=== PATIENT | female | born 2000 | race African-American/Black ===

== ENCOUNTER 2019-08-26 19:10 | Emergency (ER) | payer BC ==
[~2019-08-26] VITALS: Ht 165.1 cm; Wt 56.7 kg
[2019-08-26 21:10] VITALS: BP 115/70
== END 2019-08-26 21:10 | disposition home or self-care (01) ==
LOC: ER 19:10
DX: S20.222A Contusion of left back wall of thorax, initial encounter (principal); S20.212A Contusion of left front wall of thorax, initial encounter; V89.2XXA Person injured in unspecified motor-vehicle accident, traffic, initial encounter; Y92.89 Other specified places as the place of occurrence of the external cause; Y93.89 Activity, other specified; Y99.8 Other external cause status